=== PATIENT | female | born 1955 | race Caucasian/White ===

== ENCOUNTER 2024-03-07 15:51 | Emergency (ER) | payer MEDICARE, BC ==
[~2024-03-07] VITALS: Ht 152.4 cm; Wt 75.0 kg
[2024-03-07 16:35] VITALS: BP 155/75; PULSE 98; RESP 16; O2SAT 100
[2024-03-07] MEDS ORDERED: HYDROcodone/acetaminophen 5mg/325mg tablet PO ONE (17:05)
[2024-03-07] MEDS: ibuprofen 200mg tablet PO ONE (17:29)
[2024-03-07] MEDS ORDERED: HYDR-3965 PO (18:07)
[2024-03-07 18:45] VITALS: TEMP 97.9
== END 2024-03-07 17:55 | disposition home or self-care (01) ==
LOC: ER 15:52
DX: S42.292A Other displaced fracture of upper end of left humerus, initial encounter for closed fracture (principal); S01.01XA Laceration without foreign body of scalp, initial encounter; W19.XXXA Unspecified fall, initial encounter; Y93.89 Activity, other specified; Y92.89 Other specified places as the place of occurrence of the external cause; Y99.8 Other external cause status
CPT/HCPCS: 12001; 29105; 73030; 99283; A4565